=== PATIENT | female | born 1995 | race Caucasian/White ===

== ENCOUNTER 2024-01-09 20:57 | Emergency (ER) | payer MEDICAID ==
[~2024-01-09] VITALS: Ht 160 cm; Wt 74.0 kg
[2024-01-09 21:50] VITALS: BP 134/84; PULSE 64; RESP 18; TEMP 98.1; O2SAT 99
[2024-01-10] MEDS: LIDOCAINE HCL/PF 1% 10 MG/ML 5ML VIAL INFIL ONE (01:13)
[2024-01-10] MEDS: BACITRACIN ZINC OINT UDPKT TOP ONE (01:13)
[2024-01-10] MEDS ORDERED: BO1 TP (02:05)
[2024-01-10] MEDS ORDERED: CEPH500T MT (02:05)
== END 2024-01-10 02:24 | disposition home or self-care (01) ==
LOC: ER 20:57
DX: S62.605A Fracture of unspecified phalanx of left ring finger, initial encounter for closed fracture (principal); X58.XXXA Exposure to other specified factors, initial encounter; Y93.89 Activity, other specified; Y92.89 Other specified places as the place of occurrence of the external cause; Y99.8 Other external cause status
CPT/HCPCS: 73140; 11760; 99284; J3490; Z7610; 11730; 12001